=== PATIENT | male | born 1940 | race African-American/Black ===

== ENCOUNTER → 2020-08-14 | Outpatient (CLI) | payer MEDICARE ==
[~2020-08-14] MED LIST: ADULT ASPIRIN81 MG PO; Z.0.ALLOPURINOL100 M; Z.0.DILTIAZEM 24HR12; Z.0.PLAVIX75 MG; [UNRECOGNIZED DRUG - OTHER]; [UNRECOGNIZED DRUG - OTHER]
== END ==
LOC: MRI 09:39
PROVIDERS: ATTEND Emergency Medicine
DX: R41.3 Other amnesia (principal)
CPT/HCPCS: 70551